=== PATIENT | male | born 1975 | race African-American/Black ===

== ENCOUNTER 2017-08-02 11:52 | Emergency (ER) | payer BC ==
--- NOTE | 2017-08-02 17:16 | RAD ---
RIGHT KNEE FOUR VIEWS 08/02/17 No fracture, dislocation, or joint effusion was seen. There is some minimal medial joint space narro wing. Some minor irregularity of the anterior aspect of the patella does not have a recent appearanc e. IMPRESSION: No acute bony findings. POS: HOME
== END 2017-08-02 12:55 | disposition home or self-care (01) ==
LOC: BURERS 11:52
DX: S83.411A Sprain of medial collateral ligament of right knee, initial encounter (principal); X50.1XXA Overexertion from prolonged static or awkward postures, initial encounter